=== PATIENT | male | born 1965 ===

== ENCOUNTER 2017-04-19 19:10 | Observation (INO) | payer BC ==
[2017-04-19] MEDS ORDERED: Sodium Chloride 0.9% 2.5 ML Syringe FLUSH PRN (19:17)
[2017-04-19] MEDS ORDERED: Ondansetron 4 MG/2 ML SDV IVPUSH ONE (19:17)
[2017-04-19] MEDS ORDERED: Sodium Chloride 0.9% 10 ML Syringe FLUSH PRN (19:17)
[2017-04-19] MEDS ORDERED: Ketorolac 30 MG/ML SDV IVPUSH ONE (19:17)
[2017-04-19] MEDS ORDERED: Sodium Chloride 0.9% 1,000 ML IV ONE (19:17)
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
[2017-04-19] MEDS ORDERED: Iopamidol 755 MG/ML 500 ML Multipack Bottle IVPUSH STA (19:53)
[2017-04-19 19:55] LABS: CHLORIDE,CL 106 mmol/L (98-110); SODIUM,NA 140 mmol/L (136-146)
[2017-04-19] MEDS ORDERED: Levofloxacin/Dextrose 5%-Water 500 MG in Premix Bag 1 BAG IV ONE (20:44)
[2017-04-19] MEDS: Sodium Chloride 0.9% 1,000 ML IV SCH (20:51)
--- NOTE | 2017-04-19 22:24 | PCM.HP ---
H&P History of Present Illness - General Date of Service: 04/19/17 Admit Problem/Dx: Admission Diagnosis/Problem Admission Diagnosis/Problem Leukocytosis Source of Information: Patient, Provider - History of Present Illness Initial Comments - Free Text/Narative: He presented with recent vomiting, malaise and chills. No cough or dyspnea. no dysuria. He had a diarrheal stool today. - Related Data Allergies/Adverse Reactions: Allergies Allergy/AdvReac Type Severity Reaction Status Date / Time No Known Allergies Allergy Verified 04/19/17 19:17 Home Medications: Home Meds Losartan [Cozaar] 25 mg PO DAILY 05/06/15 [History] Past Medical History HEENT History: Reports: None Cardiovascular History: Reports: Hypertension Respiratory History: Reports: None Gastrointestinal History: Reports: None Genitourinary History: Reports: None Musculoskeletal History: Reports: None Neurological History: Reports: None Psychiatric History: Reports: None Endocrine/Metabolic History: Reports: None Hematologic History: Reports: None Immunologic History: Reports: None Oncologic (Cancer) History: Reports: None Dermatologic History: Reports: None - Infectious Disease History Infectious Disease History: Reports: None - Past Surgical History GI Surgical History: Reports: Appendectomy, Other (See Below) Social & Family History - Family History Family Medical History: Noncontributory - Tobacco Use Smoking Status *Q: Never Smoker - Recreational Drug Use Recreational Drug Use: No H&P Review of Systems - Review of Systems: Review Of Systems: See Below General: Reports: Chills, Malaise HEENT: Denies: Ear Pain, Headaches, Sore Throat Pulmonary: Denies: Shortness of Breath, Wheezing, Cough, Sputum, Hemoptysis Cardiovascular: Denies: Chest Pain, Palpitations Gastrointestinal: Reports: Diarrhea, Nausea, Vomiting. Denies: Abdominal Pain, Black Stool, Bloody Stool, Difficulty Swallowing, Hematemesis, Hematochezia Genitourinary: Denies: Dysuria, Hematuria Neurological: Denies: Confusion Exam - Exam Exam: See Below - Vital Signs Vital Signs: Last Vital Signs Temp 97.8 F 04/19/17 21:33 Pulse 85 04/19/17 21:33 Resp 18 04/19/17 21:33 BP 161/100 H 04/19/17 21:33 Pulse Ox 100 04/19/17 21:33 Weight: 99.79 kg - Exam General: Alert, Oriented, Cooperative. No: Mild Distress, Moderate Distress, Severe Distress, Sedated, Lethargic, Obtunded HEENT: EOMI, Mucosa Moist & [place] Neck: Supple, Trachea Midline Lungs: Clear to Auscultation, Normal Respiratory Effort Cardiovascular: Regular Rate, Regular Rhythm GI/Abdominal Exam: Soft, Non-Tender (Male) Exam: Normal Prostate. No: Penile Lesions, Scrotal Swelling Rectal (Males) Exam: Normal Rectal Tone, Prostate Normal Extremities: No Pedal Edema Neurological: Cranial Nerves Intact, Normal Speech Neuro Extensive - Mental Status: Normal Mood/Affect - Patient Data Lab Results Last 24 hrs: Laboratory Results - last 24 hr 04/19/17 04/19/17 04/19/17 Range/Units 19:15 19:15 19:15 WBC 15.87 H (4.0-11.0) K/uL RBC 5.30 (4.50-5.90) M/uL Hgb 15.7 (13.0-17.0) g/dL Hct 44.5 (38.0-50.0) % MCV 84.0 (80.0-98.0) fL MCH 29.6 (27.0-32.0) pg MCHC 35.3 (31.0-37.0) g/dL RDW Std Deviation 39.6 (28.0-62.0) fl RDW Coeff of Parvez 13 (11.0-15.0) % Plt Count 224 (150-400) K/uL MPV 10.10 (7.40-12.00) fL Neut % (Auto) 74.1 (48.0-80.0) % Lymph % (Auto) 20.7 (16.0-40.0) % [place] % (Auto) 4.8 (0.0-15.0) % Eos % (Auto) 0.3 (0.0-7.0) % Baso % (Auto) 0.1 (0.0-1.5) % Neut # (Auto) 11.8 H (1.4-5.7) K/uL Lymph # (Auto) 3.3 H (0.6-2.4) K/uL [place] # (Auto) 0.8 (0.0-0.8) K/uL Eos # (Auto) 0.0 (0.0-0.7) K/uL Baso # (Auto) 0.0 (0.0-0.1) K/uL Nucleated RBC % 0.0 /100WBC Nucleated RBCs # 0 K/uL Lactate 5.1 H (0.20-2.00) mmol/L Sodium 140 (136-146) mmol/L Potassium 4.0 (3.5-5.1) mmol/L Chloride 106 (98-110) mmol/L Carbon Dioxide 23 (21-31) mmol/L BUN 16 (6.0-23.0) mg/dL Creatinine 1.1 (0.6-1.5) mg/dL Est Cr Clr Drug Dosing 69.28 mL/min Estimated GFR (MDRD) > 60.0 ml/min Glucose 146 H (60-110) mg/dL Calcium 9.3 (8.8-10.8) mg/dL Total Bilirubin 0.5 (0.1-1.5) mg/dL AST 34 (5-40) IU/L ALT 36 (8-54) IU/L Alkaline Phosphatase 60 (40-150) Total Protein 8.2 H (6.0-8.0) g/dL Albumin 4.0 (3.5-5.0) g/dL Globulin 4.2 H (2.0-3.5) g/dL Albumin/Globulin Ratio 1.0 L (1.3-2.8) Amylase 66 (10-90) U/L Lipase 15 (7-80) U/L Urine Color Urine Appearance Urine pH (5.0-8.0) Ur Specific [place] (1.001-1.035) Urine Protein (NEGATIVE) mg/dL Urine Glucose (UA) (NEGATIVE) mg/dL Urine Ketones (NEGATIVE) mg/dL Urine Occult Blood (NEGATIVE) Urine Nitrite (NEGATIVE) Urine Bilirubin (NEGATIVE) Urine Urobilinogen (<2.0) EU/dL Ur Leukocyte Esterase (NEGATIVE) Urine RBC (0-2/HPF) Urine WBC (0-5/HPF) Ur Epithelial Cells (NONE-FEW) Urine Bacteria (NEGATIVE) Hyaline Casts (0-2/LPF) Fine Granular Casts (NEGATIVE) Urine Mucus (NONE-MOD) 04/19/17 Range/Units 19:24 WBC (4.0-11.0) K/uL RBC (4.50-5.90) M/uL Hgb (13.0-17.0) g/dL Hct (38.0-50.0) % MCV (80.0-98.0) fL MCH (27.0-32.0) pg MCHC (31.0-37.0) g/dL RDW Std Deviation (28.0-62.0) fl RDW Coeff of Parvez (11.0-15.0) % Plt Count (150-400) K/uL MPV (7.40-12.00) fL Neut % (Auto) (48.0-80.0) % Lymph % (Auto) (16.0-40.0) % [place] % (Auto) (0.0-15.0) % Eos % (Auto) (0.0-7.0) % Baso % (Auto) (0.0-1.5) % Neut # (Auto) (1.4-5.7) K/uL Lymph # (Auto) (0.6-2.4) K/uL [place] # (Auto) (0.0-0.8) K/uL Eos # (Auto) (0.0-0.7) K/uL Baso # (Auto) (0.0-0.1) K/uL Nucleated RBC % /100WBC Nucleated RBCs # K/uL Lactate (0.20-2.00) mmol/L Sodium (136-146) mmol/L Potassium (3.5-5.1) mmol/L Chloride (98-110) mmol/L Carbon Dioxide (21-31) mmol/L BUN (6.0-23.0) mg/dL Creatinine (0.6-1.5) mg/dL Est Cr Clr Drug Dosing mL/min Estimated GFR (MDRD) ml/min Glucose (60-110) mg/dL Calcium (8.8-10.8) mg/dL Total Bilirubin (0.1-1.5) mg/dL AST (5-40) IU/L ALT (8-54) IU/L Alkaline Phosphatase (40-150) Total Protein (6.0-8.0) g/dL Albumin (3.5-5.0) g/dL Globulin (2.0-3.5) g/dL Albumin/Globulin Ratio (1.3-2.8) Amylase (10-90) U/L Lipase (7-80) U/L Urine Color YELLOW Urine Appearance CLEAR Urine pH 6.0 (5.0-8.0) Ur Specific [place] >= 1.030 (1.001-1.035) Urine Protein NEGATIVE (NEGATIVE) mg/dL Urine Glucose (UA) NEGATIVE (NEGATIVE) mg/dL Urine Ketones NEGATIVE (NEGATIVE) mg/dL Urine Occult Blood NEGATIVE (NEGATIVE) Urine Nitrite NEGATIVE (NEGATIVE) Urine Bilirubin NEGATIVE (NEGATIVE) Urine Urobilinogen 0.2 (<2.0) EU/dL Ur Leukocyte Esterase NEGATIVE (NEGATIVE) Urine RBC 1-3 (0-2/HPF) Urine WBC 10-15 (0-5/HPF) Ur Epithelial Cells FEW (NONE-FEW) Urine Bacteria FEW (NEGATIVE) Hyaline Casts OCCASIONAL (0-2/LPF) Fine Granular Casts FEW (NEGATIVE) Urine Mucus MODERATE (NONE-MOD) Result Diagrams: 04/19/17 19:15 04/19/17 19:15 Chris Results Last 24 hrs: Microbiology 04/19/17 19:24 Influenza Type A Antigen Screen - Final Nasopharyngeal Swab - Nare, Left NEGATIVE INFLUENZA A VIRUS AG Influenza Type B Antigen Screen - Final NEGATIVE INFLUENZA B VIRUS AG *Q Meaningful Use (ADM) - VTE *Q VTE Criteria *Q: - Stroke *Q Stroke Criteria *Q: - AMI *Q AMI Criteria *Q: - Problem List (1) Cholelithiasis SNOMED Code(s): 473117998 ICD Code: K80.20 - CALCULUS OF GALLBLADDER W/O CHOLECYSTITIS W/O OBSTRUCTION Status: Acute Current Visit: Yes (2) Lactic acidosis SNOMED Code(s): 08555992 ICD Code: E87.2 - ACIDOSIS Status: Acute Current Visit: Yes (3) Leukocytosis SNOMED Code(s): 241511327 ICD Code: D72.829 - ELEVATED WHITE BLOOD CELL COUNT, UNSPECIFIED Status: Acute Current Visit: Yes Qualifiers: Leukocytosis type: unspecified Qualified Code(s): D72.829 - Elevated white blood cell count, unspecified (4) Pyuria SNOMED Code(s): 1656050, 043641317 ICD Code: N39.0 - URINARY TRACT INFECTION, SITE NOT SPECIFIED Status: Acute Current Visit: Yes Problem List Initiated/Reviewed/Updated: Yes Orders Last 24hrs: Active Orders 24 hr Category Date Time Status Patient Status [ADT] Stat ADT 04/19/17 21:18 Active EKG Documentation Completion [RC] STAT Care 04/19/17 19:17 Active Abdomen Pelvis w Cont [CT] Stat Exams 04/19/17 19:43 Taken CULTURE BLOOD [BC] Stat Lab 04/19/17 20:02 Received CULTURE BLOOD [BC] Stat Lab 04/19/17 20:27 Received CULTURE URINE [RM] Stat Lab 04/19/17 19:24 Received Sodium Chloride 0.9% [Normal Saline] 1,000 ml Med 04/19/17 21:00 Active IV ASDIRECTED Sodium Chloride 0.9% [Saline Flush] Med 04/19/17 19:17 Active 10 ml FLUSH ASDIRECTED PRN Sodium Chloride 0.9% [Saline Flush] Med 04/19/17 19:17 Active 2.5 ml FLUSH ASDIRECTED PRN Blood Culture x2 Reflex Set [OM.PC] Stat Oth 04/19/17 19:43 Ordered Saline Lock Insert [OM.PC] Stat Oth 04/19/17 19:16 Ordered Medication Orders Sodium Chloride (Normal Saline) 1,000 mls @ 150 mls/hr IV ASDIRECTED SUJATA Last Admin: 04/19/17 20:51 Dose: 150 mls/hr Sodium Chloride (Saline Flush) 10 ml FLUSH ASDIRECTED PRN PRN Reason: Keep Vein Open Sodium Chloride (Saline Flush) 2.5 ml FLUSH ASDIRECTED PRN PRN Reason: Keep Vein Open Assessment/Plan Comment:: 04/19/2017 this may be a viral illness but will cover with antibiotics in light of the pyuria and leukocytosis and elevated lactic acid. Must consider prostatitis despite no definite physical exam findings.
[2017-04-19] MEDS ORDERED: Temazepam 15 MG Cap PO PRN (22:25)
[2017-04-19] MEDS ORDERED: Ondansetron 4 MG/2 ML SDV IVPUSH PRN (22:25)
[2017-04-19] MEDS ORDERED: Acetaminophen 325 MG Tab PO PRN (22:25)
[2017-04-19] MEDS ORDERED: Levofloxacin/Dextrose 5%-Water 250 MG in Premix Bag 1 BAG IV ONE (22:58)
[2017-04-20 05:17] LABS: CHLORIDE,CL 107 mmol/L (98-110); SODIUM,NA 141 mmol/L (136-146)
[2017-04-20] MEDS: Sodium Chloride 0.9% 1,000 ML IV SCH (07:06)
[2017-04-20 08:14] VITALS: BP 130/78
[2017-04-20] MEDS ORDERED: Magnesium Sulfate/Water 2 GM in Premix Bag 1 BAG IV ONE (08:40)
[2017-04-20] MEDS ORDERED: Losartan 50 MG Tab PO SCH (09:00)
[2017-04-20] MEDS ORDERED: Enoxaparin 40 MG/0.4 ML Syringe SUBCUT SCH (09:00)
--- NOTE | 2017-04-20 11:11 | PCM.DCSUM1 ---
Discharge Summary - Hospital Course Free Text/Narrative:: 52 yo male admitted for pyuria and leukocytosis. His WBC 15.3, UA wbc 10-15, lactate 5.1. He was started on I.V levaquin for possible prostatits. Abdominal CT showed cholelithaisis and diverticulosis without acute findings. His blood and urine culture negative. He has clinically improved. His lactate was normal. He requested to go home since he has improved. He was discharged with levaquin 750 mg qd x 8 days and zofran prn. He is to follow up PCP. - Discharge Data Discharge Date: 04/20/17 Discharge Disposition: Home, Self-Care 01 Condition: Good - Patient Instructions Diet: GI Soft/Low Residue/Low Fiber Activity: As Tolerated Driving: May Drive Today Showering/Bathing: September Shower Notify Provider of: Fever, Increased Pain, Swelling and Redness, Drainage, Nausea and/or Vomiting - Discharge Plan Prescriptions/Med Rec: Levofloxacin [Levaquin] 750 mg PO DAILY #8 tablet Ondansetron [Zofran] 4 mg PO Q6H #10 tab Home Medications: Home Meds Losartan [Cozaar] 25 mg PO DAILY 05/06/15 [History] Lansoprazole [Prevacid] 30 mg PO 04/20/17 [History] Levofloxacin [Levaquin] 750 mg PO DAILY #8 tablet 04/20/17 [Rx] Ondansetron [Zofran] 4 mg PO Q6H #10 tab 04/20/17 [Rx] Patient Handouts: Ondansetron tablets, Leukocytosis, Levofloxacin tablets Referrals: Riley Rahman DO [Physician] - 04/27/17 9:00 am - General Info Date of Service: 04/20/17 Functional Status: Reports: Pain Controlled, Tolerating Diet - Review of Systems General: Reports: No Symptoms HEENT: Reports: No Symptoms Pulmonary: Reports: No Symptoms Cardiovascular: Reports: No Symptoms Gastrointestinal: Reports: No Symptoms Genitourinary: Reports: No Symptoms Musculoskeletal: Reports: No Symptoms Skin: Reports: No Symptoms Neurological: Reports: No Symptoms Psychiatric: Reports: No Symptoms - Patient Data Vitals - Most Recent: Last Vital Signs Temp 98.7 F 04/20/17 09:00 Pulse 88 04/20/17 09:00 Resp 16 04/20/17 09:00 BP 130/78 04/20/17 09:00 Pulse Ox 97 04/20/17 09:00 Weight - Most Recent: 106.793 kg I&O - Last 24 hours: Intake & Output 04/19/17 04/20/17 04/20/17 22:59 06:59 14:59 Intake Total 500 999 Output Total 550 Balance -50 999 Lab Results - Last 24 hrs: Laboratory Results - last 24 hr 04/19/17 04/20/17 04/20/17 Range/Units 23:52 04:48 04:48 WBC 12.43 H (4.0-11.0) K/uL RBC 4.81 (4.50-5.90) M/uL Hgb 14.3 (13.0-17.0) g/dL Hct 40.3 (38.0-50.0) % MCV 83.8 (80.0-98.0) fL MCH 29.7 (27.0-32.0) pg MCHC 35.5 (31.0-37.0) g/dL RDW Std Deviation 39.9 (28.0-62.0) fl RDW Coeff of Parvez 13 (11.0-15.0) % Plt Count 183 (150-400) K/uL MPV 10.10 (7.40-12.00) fL Neut % (Auto) 63.2 (48.0-80.0) % Lymph % (Auto) 27.8 (16.0-40.0) % Dukes % (Auto) 8.3 (0.0-15.0) % Eos % (Auto) 0.6 (0.0-7.0) % Baso % (Auto) 0.1 (0.0-1.5) % Neut # (Auto) 7.9 H (1.4-5.7) K/uL Lymph # (Auto) 3.5 H (0.6-2.4) K/uL Dukes # (Auto) 1.0 H (0.0-0.8) K/uL Eos # (Auto) 0.1 (0.0-0.7) K/uL Baso # (Auto) 0.0 (0.0-0.1) K/uL Nucleated RBC % 0.0 /100WBC Nucleated RBCs # 0 K/uL Lactate 2.4 H (0.20-2.00) mmol/L Sodium 141 (136-146) mmol/L Potassium 4.6 (3.5-5.1) mmol/L Chloride 107 (98-110) mmol/L Carbon Dioxide 26 (21-31) mmol/L BUN 14 (6.0-23.0) mg/dL Creatinine 0.9 (0.6-1.5) mg/dL Est Cr Clr Drug Dosing 84.67 mL/min Estimated GFR (MDRD) > 60.0 ml/min Glucose 103 (60-110) mg/dL Calcium 9.3 (8.8-10.8) mg/dL Magnesium 1.5 (1.5-2.3) mEq/L 04/20/17 Range/Units 04:48 WBC (4.0-11.0) K/uL RBC (4.50-5.90) M/uL Hgb (13.0-17.0) g/dL Hct (38.0-50.0) % MCV (80.0-98.0) fL MCH (27.0-32.0) pg MCHC (31.0-37.0) g/dL RDW Std Deviation (28.0-62.0) fl RDW Coeff of Parvez (11.0-15.0) % Plt Count (150-400) K/uL MPV (7.40-12.00) fL Neut % (Auto) (48.0-80.0) % Lymph % (Auto) (16.0-40.0) % Dukes % (Auto) (0.0-15.0) % Eos % (Auto) (0.0-7.0) % Baso % (Auto) (0.0-1.5) % Neut # (Auto) (1.4-5.7) K/uL Lymph # (Auto) (0.6-2.4) K/uL Dukes # (Auto) (0.0-0.8) K/uL Eos # (Auto) (0.0-0.7) K/uL Baso # (Auto) (0.0-0.1) K/uL Nucleated RBC % /100WBC Nucleated RBCs # K/uL Lactate 1.7 (0.20-2.00) mmol/L Sodium (136-146) mmol/L Potassium (3.5-5.1) mmol/L Chloride (98-110) mmol/L Carbon Dioxide (21-31) mmol/L BUN (6.0-23.0) mg/dL Creatinine (0.6-1.5) mg/dL Est Cr Clr Drug Dosing mL/min Estimated GFR (MDRD) ml/min Glucose (60-110) mg/dL Calcium (8.8-10.8) mg/dL Magnesium (1.5-2.3) mEq/L Med Orders - Current: Current Medications Acetaminophen (Tylenol) 650 mg PO Q4H PRN PRN Reason: Pain (Mild 1-3)/fever Last Admin: 04/20/17 08:19 Dose: 650 mg Enoxaparin Sodium (Lovenox) 40 mg SUBCUT DAILY [facility] Last Admin: 04/20/17 08:14 Dose: 40 mg Sodium Chloride (Normal Saline) 1,000 mls @ 125 mls/hr IV ASDIRECTED [facility] Last Admin: 04/20/17 07:06 Dose: 150 mls/hr Levofloxacin/Dextrose 750 mg/ (Premix) 150 mls @ 100 mls/hr IV Q24H [facility] Losartan Potassium (Cozaar) 25 mg PO DAILY [facility] Last Admin: 04/20/17 08:14 Dose: 25 mg Ondansetron HCl (Zofran) 4 mg IVPUSH Q4H PRN PRN Reason: Nausea Sodium Chloride (Saline Flush) 10 ml FLUSH ASDIRECTED PRN PRN Reason: Keep Vein Open Sodium Chloride (Saline Flush) 2.5 ml FLUSH ASDIRECTED PRN PRN Reason: Keep Vein Open Temazepam (Restoril) 15 mg PO BEDTIME PRN PRN Reason: Sleep Discontinued Medications Sodium Chloride (Normal Saline) 1,000 mls @ 999 mls/hr IV STAT ONE Stop: 04/19/17 20:17 Last Admin: 04/19/17 19:30 Dose: 999 mls/hr Levofloxacin/Dextrose 500 mg/ (Premix) 100 mls @ 100 mls/hr IV ONETIME ONE Stop: 04/19/17 21:43 Last Admin: 04/19/17 20:52 Dose: 100 mls/hr Levofloxacin/Dextrose 250 mg/ (Premix) 50 mls @ 50 mls/hr IV ONETIME ONE Stop: 04/19/17 23:57 Last Admin: 04/19/17 23:21 Dose: 50 mls/hr Magnesium Sulfate 2 gm/ Premix 50 mls @ 50 mls/hr IV ONETIME ONE Stop: 04/20/17 09:39 Last Admin: 04/20/17 09:33 Dose: 50 mls/hr Iopamidol (Isovue Multipack-370 (76%)) 100 ml IVPUSH ONETIME STA Stop: 04/19/17 19:54 Last Admin: 04/19/17 19:59 Dose: 100 ml Ketorolac Tromethamine (Toradol) 30 mg IVPUSH ONETIME ONE Stop: 04/19/17 19:18 Last Admin: 04/19/17 19:31 Dose: 30 mg Ondansetron HCl (Zofran) 4 mg IVPUSH ONETIME ONE Stop: 04/19/17 19:18 Last Admin: 04/19/17 19:30 Dose: 4 mg - Exam General: Reports: Alert, Oriented HEENT: Reports: Pupils Equal, EOMI Lungs: Reports: Clear to Auscultation, Normal Respiratory Effort Cardiovascular: Reports: Regular Rate, Regular Rhythm GI/Abdominal Exam: Normal Bowel Sounds, Soft Back Exam: Reports: Normal Inspection, Full Range of Motion Extremities: Normal Inspection, Normal Range of Motion Skin: Reports: Warm, Dry, Intact Neurological: Reports: No New Focal Deficit Psy/Mental Status: Reports: Alert, Normal Affect, Normal Mood *Q Meaningful Use (DIS) - VTE *Q VTE Criteria *Q: - Stroke *Q Stroke Criteria *Q: - AMI *Q AMI Criteria *Q:
--- NOTE | 2017-04-20 13:39 | CT ---
EXAM DATE: 04/19/17 PATIENT'S AGE: 52 Patient: GAYLE BUTTS Facility: [place], [place] Site . Site : [id number] Study: CT Abdomen/Pelvis [id number]/7/2017 8:26:30 PM Ordering Physician: Nasra Palma Final Report: HISTORY: Pain. Body aches. Nausea and vomiting. TECHNIQUE: The abdomen and pelvis was scanned using helical technique at 3 mm after 100 cc of Isovue-370. Sagittal and coronal reconstructions were performed. FINDINGS: Lung bases: No infiltrate. The heart is at the upper limits of normal. Liver and gallbladder: The liver parenchyma is homogeneous. Small gallstones are seen in the dependent portion of gallbladder. No wall thickening. Spleen, pancreas and adrenal glands: Unremarkable. Kidneys and bladder: Images are degraded by motion. Symmetric nephrograms. No hydronephrosis. A 1.6 cm hypodense focus is seen posterior upper pole right kidney most likely a cyst. The bladder is incompletely distended and unremarkable in appearance. Retroperitoneal and lymph nodes: Abdominal aorta is normal caliber. No pathologic jyothi aortic lymphadenopathy is seen. GI tract: Stomach is decompressed. No dilated small bowel loops are seen. The appendix is not visualized. Images of the mid and lower abdomen are degraded by motion. No inflammatory mass is seen in the right lower quadrant. Stool and gas is seen scattered throughout the colon. There is diverticula of the descending and sigmoid colon. No inflammatory change to suggest diverticulitis. There is no free air in the abdomen. There is no free fluid in the pelvis. Pelvic organs: The prostate is normal. Osseous structures: No suspicious lytic or blastic bone lesions are seen. IMPRESSION: 1. Exam degraded by motion. 2. Cholelithiasis without evidence of cholecystitis. 3. Right renal cyst. 4. Diverticulosis of the descending and sigmoid colon. No surrounding inflammatory changes seen to suggest diverticulitis. 5. The appendix is not seen. No inflammatory mass in the right lower quadrant. 6. No etiology for the abdominal pain is seen. Dictated by Larissa Gilmore MD @ 04/19/2017 8:38:10 PM Dictated by: Larissa Gilmore MD @ 04/19/2017 20:39:09 (Electronic Signature) Report Signed by Proxy. MTDD
[2017-04-20] MEDS ORDERED: Levofloxacin/Dextrose 5%-Water 750 MG in Premix Bag 1 BAG IV SCH (20:00)
== END 2017-04-20 11:35 | disposition home or self-care (01) ==
LOC: MW.ED 19:10 → MW.MS 21:18
PROVIDERS: ADMIT Family Medicine; ATTEND Family Medicine
DX: N39.0 Urinary tract infection, site not specified (principal); I10 Essential (primary) hypertension; K80.20 Calculus of gallbladder without cholecystitis without obstruction; K57.30 Diverticulosis of large intestine without perforation or abscess without bleeding; E87.2 Acidosis; Z79.899 Other long term (current) drug therapy; Z90.49 Acquired absence of other specified parts of digestive tract
CPT/HCPCS: 36415; 74177; 80048; 80053; 81001; 82150; 83605; 83690; 83735; 85025; 87040; 87086; 87804; 93005; 96361; 96365; 96375; 99285; A9270; J1650; J1885; J1956; J2405; J3475; J7040; Q9967; 96366; 96367; 96372; 99284; G0378